=== PATIENT | female | born 1980 | race Caucasian/White ===

== ENCOUNTER 2016-10-05 09:02 | Emergency (ER) | payer OTHER ==
[~2016-10-05] VITALS: Ht 165.1 cm; Wt 48.0 kg
[~2016-10-05 09:02] MED LIST: ALYACEN1 EACH PO; B COMPLETE1 EACH PO; CANNIBUS OIL; DAILY MULTIPLE1 EACH PO; ENDOCET 5-3251 EACH PO; IBUPROFEN800 MG PO; L-GLUTAMINE500 M5 PO; PERCOCET 7.51 TABLET PO; PREDNISONE10 MG PO; VITAMIN D31000 UNI2 PO
[2016-10-05 09:29] LABS: HEMATOCRIT 42.9 % (36.0-46.0); MCH 29.4 PG (29.0-34.0); MCHC 33.8 G/DL (30.0-36.0); MEAN PLAT.VOLUME 9.8 uM^3 (9.5-12.4); PLATELET COUNT 270 K/uL (156-360); RBC DIS.WIDTH-CV 12.6 % (11.8-14.6); RBC DIS.WIDTH-SD 39.9 % (39-53); RED BLOOD COUNT 4.93 M/uL (3.80-5.20); WHITE BLOOD COUNT 15.2 K/uL (4.1-10.2)
[2016-10-05 09:52] LABS: QUANTITATIVE HCG < 4.0 MIU/ML
[2016-10-05 10:07] LABS: ALKALINE PHOSPHATASE 43 IU/L (3-129); ANION GAP 15 MEQ/L (2-14); CHLORIDE 105 MEQ/L (99-109); GFR ESTIMATE (CALCULATED) > 59 mL/min/; GLUCOSE 143 mg/dL (70-99); LIPASE 27 U/L (1.0-51.0); POTASSIUM 3.4 MEQ/L (3.7-5.4); SAMPLE HEMOLYSIS CHECK 0; SAMPLE ICTERIC CHECK 0; SAMPLE LIPEMIA CHECK 0; SODIUM 140 MEQ/L (136-147); TOTAL BILIRUBIN 0.9 MG/DL (0.0-1.0); UREA NITROGEN (BUN) 19 mg/dL (9-23)
[2016-10-05 14:26] LABS: ADD MIUA? YES; BILIRUBIN NEGATIVE; BLOOD NEGATIVE; COLOR YELLOW ((YELLOW)); GLUCOSE (STRIP) NEGATIVE; KETONES 20; LEUKOCYTES NEGATIVE; NITRITE NEGATIVE; PROTEIN (STRIP) 100; SPECIFIC GRAVITY 1.023 (1.000-1.030); UROBILINOGEN 0.2 MG/DL (0.2-1.0)
[2016-10-05 14:36] LABS: BACTERIA RARE /HPF; EPITHELIAL CELLS RARE /HPF; MUCUS 1+ /LPF; UCUL ADDED? NO; WHITE BLOOD CELLS 0-5 /HPF (0-5)
[2016-10-05] MEDS ORDERED: REGLAN5 MG PO (14:42)
[2016-10-05] MEDS ORDERED: BENTYL20 MG PO (16:33)
[2016-10-05] MEDS ORDERED: PHENERGAN25 MG PR (16:33)
[2016-10-05 16:48] VITALS: BP 184/96
== END 2016-10-05 16:49 | disposition home or self-care (01) ==
LOC: EME 09:02
DX: R10.2 Pelvic and perineal pain (principal); R10.30 Lower abdominal pain, unspecified; R11.2 Nausea with vomiting, unspecified; R00.2 Palpitations; Z79.52 Long term (current) use of systemic steroids
CPT/HCPCS: 74022; 76856; 80053; 81003; 83690; 84702; 85027; 99281; 99285; J2405; J2765; J3010; J7030